=== PATIENT | female | born 1995 | race Caucasian/White ===

== ENCOUNTER → 2020-09-25 10:43 | Outpatient (CLI) | payer OTHER, SELFPAY ==
--- NOTE | 2020-09-25 | DI.MRI.S_ITS ---
PROCEDURE: MR ANKLE RT WO CON INDICATIONS: PAIN TECHNIQUE: Noncontrast sagittal T1 spin echo and T2 fast spin echo with fat saturation, axial proton density fast spin echo and T2 fast spin echo with fat saturation, coronal T1 spin echo and T2 fast spin echo with fat saturation through the ankle/hindfoot. COMPARISON: [facility], MR, MR FOOT RT WO CON, 09/25/2020, 11:17. FINDINGS: Image quality: There is mild inhomogeneous fat saturation limiting evaluation. Bones and joints: No bone marrow contusions or fractures. No hindfoot coalitions. No osteochondral injuries of the talar dome. Within the calcaneus, there is an oval circumscribed predominantly T1 hyperintense lesion measuring approximately 2.6 x 2.4 x 1.9 cm. There is diffuse fat saturation with internal areas of T2 hyperintensity. 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 No pathologic joint effusions. There is a lobulated septated ganglion cyst posterior to the tibiotalar joint measuring approximately 1.7 x 0.7 x 2.1 cm. Medial structures: The posterior tibialis, flexor digitorum longus, and flexor hallucis longus tendons are intact. The posterior tibial neurovascular bundle appears normal within the tarsal tunnel, without extrinsic mass effect. The deltoid and spring ligament components appear intact. Lateral structures: The anterior talofibular, calcaneofibular, and posterior talofibular ligaments appear slightly thickened with mild intermediate signal compatible with sequelae of mild to moderate sprains. More superiorly, the anterior and posterior tibiofibular ligaments appear intact, as is the intermalleolar ligament. The tibiofibular syndesmosis is normal in width at 2 mm or less. The peroneus longus and brevis tendons demonstrate normal location and morphology. Adjacent bony peroneal tubercle and retrotrochlear prominence are normal in size. The sinus tarsi demonstrates preserved fatty signal. The calcaneonavicular and calcaneocuboid components of the bifurcate ligament appear intact. The dorsal calcaneocuboid ligament appears intact. Anterior structures: The tibialis anterior, extensor hallucis longus, and extensor digitorum longus tendons appear intact. The dorsal talonavicular ligament appears intact. Posterior and plantar structures: Achilles tendon is intact. Medial and lateral bands of the plantar fascia are of normal thickness. No abductor digiti quinti muscle atrophy to suggest Ortiz neuropathy. IMPRESSION: 1. 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 Heterogeneous internal components may reflect areas of fat necrosis. 2. Sequelae of prior mild to moderate sprains of the lateral ankle ligaments as described. 3. Lobulated ganglion cyst posterior to the tibiotalar joint. Dictated by: Olaf Casiano M.D. on 09/26/2020 at 11:25 Approved by: Olaf Casiano M.D. on 09/26/2020 at 11:36
--- NOTE | 2020-09-25 10:47 | DI.MRI.S_ITS ---
PROCEDURE: MR FOOT RT WO CON INDICATIONS: Pain in right foot TECHNIQUE: Noncontrast sagittal T1 spin echo and T2 fast spin echo with fat saturation, long-axis T1 spin echo and T2 fast spin echo with fat saturation, short-axis T1 spin echo and T2 fast spin echo with fat saturation through the forefoot. COMPARISON: [facility], MR, MR ANKLE RT WO CON, 09/25/2020, 11:40. FINDINGS: Image quality: Excellent. Bones and joints: No bone marrow contusions or metatarsal stress fractures. The sesamoid bones appear in expected positions, without internal edema. No metatarsophalangeal joint degeneration. No intraosseous lesions. There is edema along the lateral aspect of the 5th MTP joint. The 5th MTP joint collateral ligaments appear grossly intact. Visualized flexor and extensor tendons appear intact, without tenosynovitis. The distal insertions of the peroneus brevis and longus tendons appear intact. The principal Lisfranc ligament appears intact. Intermetatarsal bursal fluid collection between the 1st-2nd, 2nd-3rd and 3rd-4th metatarsal heads. Sagittal images demonstrate no evidence for plantar plate tears. IMPRESSION: Soft tissue edema along the lateral aspect of the 5th MTP joint, which could reflect soft tissue contusion, and or low-grade sprain of the adjacent 5th MTP lateral collateral ligament/capsule although no complete disruption or marked thickening is identified. Intermetatarsal bursitis, between the 1st-2nd, 2nd-3rd and 3rd-4th toes. Dictated by: Christian Ott M.D. on 09/26/2020 at 8:41 Approved by: Christian Ott M.D. on 09/26/2020 at 8:59
== END ==
PROVIDERS: Referring Provider Student in an Organized Health Care Education/Training Program; Visit Provider Student in an Organized Health Care Education/Training Program
DX: M79.671 Pain in right foot (principal); R60.0 Localized edema; M77.51 Other enthesopathy of right foot and ankle; M67.471 Ganglion, right ankle and foot; M89.9 Disorder of bone, unspecified
CPT/HCPCS: 73718; 73721